=== PATIENT | female | born 1970 | race Caucasian/White ===

== ENCOUNTER 2018-03-11 10:24 | Emergency (ER) | payer MEDICARE ==
[~2018-03-11] VITALS: Ht 160 cm; Wt 72.6 kg
[2018-03-11] MEDS ORDERED: SODIUM CHLORIDE 0.9% 1000ML 1,000 ML IV STA (11:12)
[2018-03-11] MEDS ORDERED: MORPHINE SULFATE 2 MG/ML SYR IV STA ×3 (11:12→13:35)
[2018-03-11] MEDS ORDERED: PROMETHAZINE HCL (IM) 25 MG/ML VIAL IV STA (11:12)
[2018-03-11] MEDS ORDERED: DIATRIZOATE MEGL/DIATRIZOA SOD 30 ML BTL PO ONE (11:33)
[2018-03-11] MEDS ORDERED: SODIUM CHLORIDE 0.9% 50ML 50 ML ONE ×2 (11:44→14:48)
[2018-03-11 12:08] LABS: BASOPHILS % 0.4 % (0.0-1.0); EOSINOPHILS # (AUTO) 0.1 (0.0-0.4); EOSINOPHILS % 1.3 % (0.0-6.0); HEMATOCRIT 42.8 % (34.2-44.1); HEMOGLOBIN 14.6 g/dL (12.0-16.0); LYMPHOCYTES # (AUTO) 2.1 (1.0-3.2); LYMPHOCYTES % 26.6 % (18.0-39.1); MEAN CORPUSCULAR HEMOGLOBIN 31.9 pg (28-32); MEAN CORPUSCULAR HGB CONC 34.1 g/dL (31-35); MEAN CORPUSCULAR VOLUME 93.4 fL (81-99); MONOCYTES # (AUTO) 0.6 (0.2-0.8); MONOCYTES % 7.5 % (4.4-11.3); NEUTROPHILS # (AUTO) 4.9 (2.1-6.9); NEUTROPHILS % 64.1 % (38.7-80.0); PLATELET COUNT 244 x10e3/uL (140-360); RED BLOOD COUNT 4.58 x10e6/uL (3.6-5.1); RED CELL DISTRIBUTION WIDTH 12.8 % (11.7-14.4)
[2018-03-11] MEDS ORDERED: METHYLPREDNISOLONE SOD SUCC 125 MG/2ML VIAL IV ONE (12:15)
[2018-03-11 12:25] LABS: ALANINE AMINOTRANSFERASE 15 IU/L (0-55); ALBUMIN 3.5 g/dL (3.5-5.0); ALKALINE PHOSPHATASE 79 IU/L (40-150); ANION GAP 11.3 mmol/L (8-16); BLOOD UREA NITROGEN < 5 mg/dL (7-26); CALCIUM 9.4 mg/dL (8.4-10.2); CARBON DIOXIDE 25 mmol/L (22-29); CHLORIDE 106 mmol/L (98-107); CREATININE, SERUM 0.72 mg/dL (0.57-1.11); EST GLOMERULAR FILTRATION RATE > 60 ML/MIN (60-); GLUCOSE 92 mg/dL (74-118); LIPASE 15 U/L (8-78); POTASSIUM 3.3 mmol/L (3.5-5.1); SODIUM 139 mmol/L (136-145)
[2018-03-11 12:27] LABS: BUN/CREATININE RATIO 7 (6-25)
[2018-03-11 13:25] LABS: BILIRUBIN,URINE NEGATIVE (NEGATIVE); CLARITY,URINE CLEAR (CLEAR); COLOR,URINE YELLOW (YELLOW); KETONES,URINE NEGATIVE (NEGATIVE); LEUKOCYTE ESTERASE ,URINE NEGATIVE (NEGATIVE); NITRITE,URINE NEGATIVE (NEGATIVE); PROTEIN,URINE DIPSTICK NEGATIVE (NEGATIVE); URINE UROBILINOGEN 0.2 mg/dL (0.2 - 1)
[2018-03-11] MEDS ORDERED: POTASSIUM CHLORIDE 20 MEQ TAB CR PO STA (13:35)
[2018-03-11 13:39] LABS: EPITHELIAL CELLS,URINE RARE /LPF
[2018-03-11] MEDS ORDERED: ONDANSETRON HCL 4 MG ORAL DISINTEGRATING TAB PO ONE (13:45)
--- NOTE | 2018-03-11 14:03 | Diagnostic Imaging Report ---
PROCEDURE: CT ABDOMEN AND PELVIS WITH CONTRAST TECHNIQUE: The abdomen and pelvis were scanned utilizing a multidetector helical scanner from the diaphragm to the lesser trochanter after the IV administration of 100 cc of Isovue 370 and the oral administration of Gastrografin. Coronal and sagittal multiplanar reformations were obtained. COMPARISON: None. INDICATIONS: LEFT LOWER QUADRANT PAIN FINDINGS: LOWER THORAX: Normal. HEPATOBILIARY: No focal hepatic lesion or intrahepatic biliary ductal dilatation. The gallbladder is unremarkable. SPLEEN: No splenomegaly. Heterogeneity of splenic attenuation reflects arterial phase of scanning. PANCREAS: No focal masses or ductal dilatation. ADRENALS: No adrenal nodules. KIDNEYS/URETERS: No hydronephrosis, stones, or solid mass lesions. PELVIC ORGANS/BLADDER: The urinary bladder is unremarkable. The uterus is anteflexed and appears normal. No adnexal mass. A tampon lies within the vaginal vault. PERITONEUM / RETROPERITONEUM: No free air or fluid. LYMPH NODES: No pelvic sidewall, retroperitoneal, or mesenteric lymphadenopathy. VESSELS: The abdominal aorta, major branch vessels, and iliac arterial systems are well-visualized and patent. Portal vein, splenic vein, and the central superior mesenteric vein are patent. GI TRACT: The sigmoid colon and rectum are collapsed with mild wall thickening and mucosal enhancement. The large bowel otherwise shows no evidence of distention or wall thickening. The appendix is normal. The stomach is collapsed with prominence of the rugal folds. There is no small bowel dilatation to suggest obstruction. BONES AND SOFT TISSUES: No focal soft tissue abnormalities. No osseous destructive lesions. IMPRESSION: Mild distal proctocolitis without perforation or drainable fluid collection. Dictated by: Jerson Lozada M.D. on 03/11/2018 at 14:05 Electronically approved by: Jerson Lozada M.D. on 03/11/2018 at 14:05
[2018-03-11] MEDS ORDERED: METRONIDAZOLE 250MG/NS 50ML 50 ML IV STA (14:22)
[2018-03-11] MEDS ORDERED: IOPAMIDOL 370 MG/ML 200 ML INFUS..BTL INJ ONE (14:48)
[2018-03-11] MEDS ORDERED: CIPROFLOXACIN 400 MG/D5W 200ML 200 ML IV ONE (15:15)
[2018-03-11] MEDS ORDERED: METRONIDAZOLE 500 MG TAB PO STA (15:47)
[2018-03-11] MEDS ORDERED: HYDROCODONE/APAP 10MG-325MG TAB PO STA (16:28)
[2018-03-11] MEDS ORDERED: CIPROFLOXACIN 500 MG TAB PO SCH (17:00)
== END 2018-03-11 17:12 | disposition home or self-care (01) ==
LOC: ER 10:24
DX: R10.32 Left lower quadrant pain (principal); R19.7 Diarrhea, unspecified
CPT/HCPCS: 36415; 74177; 80053; 81001; 83690; 85025; 99284; J0744; J2270; J2550; J2930; J7030; Q9967

== ENCOUNTER 2018-07-21 09:45 | Emergency (ER) | payer MEDICARE ==
[~2018-07-21] VITALS: Ht 160 cm; Wt 72.6 kg
[2018-07-21] MEDS ORDERED: FAMOTIDINE 20 MG/2 ML VIAL IV STA (10:54)
[2018-07-21] MEDS ORDERED: ONDANSETRON HCL INJ 2 MG/ML VIAL IV STA (10:54)
[2018-07-21] MEDS ORDERED: SODIUM CHLORIDE 0.9% 1000ML 1,000 ML IV ONE (11:00)
[2018-07-21 11:53] LABS: BASOPHILS % 0.6 % (0.0-1.0); EOSINOPHILS # (AUTO) 0.2 (0.0-0.4); EOSINOPHILS % 2.3 % (0.0-6.0); HEMATOCRIT 46.2 % (34.2-44.1); HEMOGLOBIN 15.6 g/dL (12.0-16.0); LYMPHOCYTES # (AUTO) 2.4 (1.0-3.2); LYMPHOCYTES % 33.9 % (18.0-39.1); MEAN CORPUSCULAR HEMOGLOBIN 31.7 pg (28-32); MEAN CORPUSCULAR HGB CONC 33.8 g/dL (31-35); MEAN CORPUSCULAR VOLUME 93.9 fL (81-99); MONOCYTES # (AUTO) 0.5 (0.2-0.8); MONOCYTES % 7.5 % (4.4-11.3); NEUTROPHILS # (AUTO) 3.9 (2.1-6.9); NEUTROPHILS % 55.3 % (38.7-80.0); PLATELET COUNT 246 x10e3/uL (140-360); RED BLOOD COUNT 4.92 x10e6/uL (3.6-5.1); RED CELL DISTRIBUTION WIDTH 12.9 % (11.7-14.4)
[2018-07-21 11:58] LABS: BILIRUBIN,URINE NEGATIVE (NEGATIVE); CLARITY,URINE SL CLOUDY (CLEAR); COLOR,URINE YELLOW (YELLOW); KETONES,URINE NEGATIVE (NEGATIVE); LEUKOCYTE ESTERASE ,URINE NEGATIVE (NEGATIVE); NITRITE,URINE NEGATIVE (NEGATIVE); PROTEIN,URINE DIPSTICK NEGATIVE (NEGATIVE); URINE UROBILINOGEN 0.2 mg/dL (0.2 - 1)
[2018-07-21 12:00] LABS: EPITHELIAL CELLS,URINE RARE /LPF
[2018-07-21 12:05] LABS: ALANINE AMINOTRANSFERASE 21 IU/L (0-55); ALBUMIN 3.7 g/dL (3.5-5.0); ALBUMIN/GLOBULIN RATIO 0.8 (0.8-2.0); ALKALINE PHOSPHATASE 88 IU/L (40-150); ANION GAP 16.6 mmol/L (8-16); BLOOD UREA NITROGEN 7 mg/dL (7-26); BUN/CREATININE RATIO 8 (6-25); CALCIUM 9.8 mg/dL (8.4-10.2); CARBON DIOXIDE 25 mmol/L (22-29); CHLORIDE 101 mmol/L (98-107); CREATININE, SERUM 0.84 mg/dL (0.57-1.11); EST GLOMERULAR FILTRATION RATE > 60 ML/MIN (60-); GLUCOSE 62 mg/dL (74-118); LIPASE 33 U/L (8-78); POTASSIUM 4.6 mmol/L (3.5-5.1); SODIUM 138 mmol/L (136-145)
[2018-07-21 14:20] LABS: ERYTHROCYTE SEDIMENTATION RATE 7 mm/hr (0-20)
== END 2018-07-21 15:12 | disposition left against medical advice (07) ==
LOC: ER 09:45
DX: R10.13 Epigastric pain (principal); R10.32 Left lower quadrant pain; K52.9 Noninfective gastroenteritis and colitis, unspecified; F17.210 Nicotine dependence, cigarettes, uncomplicated
CPT/HCPCS: 36415; 80053; 81001; 83690; 85025; 85651; 99283; J7030

== ENCOUNTER 2019-02-12 15:22 | Emergency (ER) | payer MEDICARE ==
[~2019-02-12] VITALS: Ht 160 cm; Wt 72.6 kg
[2019-02-12] MEDS ORDERED: SODIUM CHLORIDE 0.9% 1000ML 2,000 ML IV ONE (16:15)
[2019-02-12] MEDS ORDERED: FAMOTIDINE 20 MG/2 ML VIAL IV NR (16:15)
[2019-02-12] MEDS ORDERED: ONDANSETRON HCL INJ 2MG/ML 2ML 2 MG/ML VIAL IV NR (16:30)
[2019-02-12 16:41] LABS: BASOPHILS # (AUTO) 0.1 (0.0-0.1); BASOPHILS % 0.9 % (0.0-1.0); EOSINOPHILS # (AUTO) 0.2 (0.0-0.4); EOSINOPHILS % 1.9 % (0.0-6.0); HEMATOCRIT 43.4 % (34.2-44.1); HEMOGLOBIN 14.8 g/dL (12.0-16.0); LYMPHOCYTES # (AUTO) 3.4 (1.0-3.2); LYMPHOCYTES % 36.8 % (18.0-39.1); MEAN CORPUSCULAR HEMOGLOBIN 31.8 pg (28-32); MEAN CORPUSCULAR HGB CONC 34.1 g/dL (31-35); MEAN CORPUSCULAR VOLUME 93.3 fL (81-99); MONOCYTES # (AUTO) 0.9 (0.2-0.8); MONOCYTES % 9.8 % (4.4-11.3); NEUTROPHILS # (AUTO) 4.7 (2.1-6.9); NEUTROPHILS % 50.4 % (38.7-80.0); PLATELET COUNT 192 x10e3/uL (140-360); RED BLOOD COUNT 4.65 x10e6/uL (3.6-5.1); RED CELL DISTRIBUTION WIDTH 12.4 % (11.7-14.4)
[2019-02-12 16:58] LABS: ALANINE AMINOTRANSFERASE 18 IU/L (0-55); ALBUMIN 3.5 g/dL (3.5-5.0); ALBUMIN/GLOBULIN RATIO 0.9 (0.8-2.0); ALKALINE PHOSPHATASE 79 IU/L (40-150); BLOOD UREA NITROGEN 8 mg/dL (7-26); BUN/CREATININE RATIO 10 (6-25); CALCIUM 9.4 mg/dL (8.4-10.2); CARBON DIOXIDE 25 mmol/L (22-29); CHLORIDE 103 mmol/L (98-107); CREATININE, SERUM 0.83 mg/dL (0.57-1.11); EST GLOMERULAR FILTRATION RATE > 60 ML/MIN (60-); GLUCOSE 93 mg/dL (74-118); SODIUM 138 mmol/L (136-145)
[2019-02-12] MEDS ORDERED: MORPHINE SULFATE INJ 4 MG/ML INJ 1ML IV NR (17:45)
[2019-02-12] MEDS ORDERED: POTASSIUM CHLORIDE 20 MEQ TAB CR PO NR (17:45)
[2019-02-12] MEDS ORDERED: DIATRIZOATE MEGL/DIATRIZOA SOD 30 ML BTL PO ONE (17:59)
[2019-02-12 18:30] LABS: PREGNANCY TEST, URINE NEGATIVE (NEGATIVE)
[2019-02-12 18:31] LABS: AMPHETAMINES SCREEN,URINE NEGATIVE (NEGATIVE); BENZODIAZEPINES SCREEN,URINE NEGATIVE (NEGATIVE); PHENCYCLIDINE SCREEN,URINE NEGATIVE (NEGATIVE)
[2019-02-12 18:38] LABS: CLARITY,URINE HAZY (CLEAR); COLOR,URINE YELLOW (YELLOW)
[2019-02-12 18:39] LABS: BILIRUBIN,URINE NEGATIVE (NEGATIVE); KETONES,URINE NEGATIVE (NEGATIVE); LEUKOCYTE ESTERASE ,URINE NEGATIVE (NEGATIVE); NITRITE,URINE NEGATIVE (NEGATIVE); PROTEIN,URINE DIPSTICK NEGATIVE (NEGATIVE); URINE UROBILINOGEN 0.2 mg/dL (0.2 - 1)
[2019-02-12 18:40] LABS: BACTERIA,URINE MODERATE /HPF; EPITHELIAL CELLS,URINE FEW /LPF; RBC,URINE 0-5 /HPF (0-5)
[2019-02-12] MEDS ORDERED: IOPAMIDOL 370 MG/ML 200 ML INFUS..BTL INJ ONE (18:59)
[2019-02-12] MEDS ORDERED: SODIUM CHLORIDE 0.9% 50ML 50 ML ONE (18:59)
--- NOTE | 2019-02-12 19:28 | Diagnostic Imaging Report ---
CT Abdomen And Pelvis with Intravenous Contrast INDICATION:abdominal pain, Crohn's disease, nausea, vomiting, diarrhea ^left lower quad pain ^[id number] ^[id number] TECHNIQUE: Thin collimation axial images obtained from the diaphragm to the level of the pubic symphysis following the uneventful administration of 100 cc of low osmolar, nonionic intravenous contrast. Dose reduction techniques used: Automated exposure control, adjustment of the mAs and/or kVp according to patient size, standardized low-dose protocol, and/or iterative reconstruction technique. RADIATION DOSE: Total DLP: 675.53 mGy*cm Estimated effective dose: (DLP x 0.015 x size factor) mSv CTDIvol has been reviewed. It is below the limits set by the Radiation Protocol Committee (RPC). COMPARISON: CT abdomen/pelvis 03/11/2018. ABDOMEN FINDINGS: Lung Bases: Minimal posterior atelectasis. Visualized portion of the mediastinum is normal. Liver: Normal attenuation. No evidence for mass. Gallbladder: Present and appears normal. No biliary ductal dilatation. Pancreas: Normal attenuation without mass or ductal dilatation. Spleen: Normal in size. No evidence of mass.. Adrenal Glands: No evidence for mass. Kidneys: Right: Normal enhancement. No soft tissue mass. No hydronephrosis. Left: Normal enhancement. No soft tissue mass. No hydronephrosis. Lymph Nodes: No enlarged abdominal or retroperitoneal lymph nodes. Aorta: Normal in diameter PELVIS FINDINGS: Bowel: Stomach: Collapsed but otherwise normal. Small Bowel: Central small bowel loop just the left of midline is distended with fluid to a diameter of 3.0 cm. Normal mural thickening and mucosal enhancement. Remainder of the small bowel is normal in diameter with normal wall thickness. No mucosal hyperemia. The terminal ileum appears normal. Large Bowel: Mild and subtle circumferential mural thickening of the descending colon containing fluid. The mid and distal descending colon and sigmoid colon are somewhat featureless with prominence of the fossa recta. No peritoneal inflammation or fluid collection. Findings are similar to previous exam. No large bowel dilatation. No perianal fistula or rectal wall thickening Appendix: Normal appendix. Fistula: None. Bladder: Normal. Uterus and adnexa are normal. Peritoneum/retroperitoneum: No free fluid or fluid collection. Bones: Unremarkable. Soft tissues: Unremarkable IMPRESSION: 1. Subtle mural thickening of the descending colon and sigmoid colon that suggests inflammatory bowel disease. There are no signs of active inflammation. An acute Crohn's flare, if present, is mild. 2. Distended central small bowel loop is suggestive of reactive ileus. Signed by: Dr. Michelle Huitron MD on 02/12/2019 7:25 PM
[2019-02-12] MEDS ORDERED: METHYLPREDNISOLONE SOD SUCC 125 MG/2ML VIAL IV NR (19:35)
== END 2019-02-12 20:03 | disposition home or self-care (01) ==
LOC: ER 15:22
DX: R11.2 Nausea with vomiting, unspecified (principal); R19.7 Diarrhea, unspecified; K50.00 Crohn's disease of small intestine without complications; F41.9 Anxiety disorder, unspecified
CPT/HCPCS: 36415; 74177; 80053; 80307; 81001; 81025; 85025; 99284; J2270; J2405; J2930; J7030; Q9967

== ENCOUNTER 2019-05-21 23:32 | Emergency (ER) | payer MEDICARE ==
[~2019-05-21] VITALS: Ht 160 cm; Wt 72.6 kg
--- OUTSIDE RECORDS SUMMARY | 2019-05-21 23:34 | XMS REPORT | Summary of Care ---
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 Active ondansetron 4 mg One every 6 50 tablet 5 disintegrating hours prn 8 tabletIndications: Non-intractable vomiting with nausea, unspecified vomiting type Active loratadine (CLARITIN) 10 Take 1 tablet 30 tablet 5 mg tablet by mouth 8 daily. Active famotidine (PEPCID) 20 mg Take 1 tablet 60 tablet 5 tablet by mouth 2 8 (two) times daily. Active proMETHazine 25 mg tablet Take 1/2 to 1 50 tablet 1 full tablet 8 every 6 hours as needed for nausea. Active SUMAtriptan 50 mg Take 1 tablet 20 tablet 5 tabletIndications: Other by mouth once 8 migraine with status daily as migrainosus, not needed for intractable Migraine. Can take a second dose if pain not relieved in 2 hours. Active SERTraline 100 mg Take 1.5 135 tablet 3 tabletIndications: tablets by 8 Recurrent major mouth daily. depressive disorder, remission status unspecified Active gabapentin 300 mg Take 2 before 270 capsule 5 capsuleIndications: bedtime and 9 Sciatica of right side occasionally 1 in the daytime as needed Active hydrOXYzine 25 mg TAKE 1 TABLET 60 tablet 2 tabletIndications: BY MOUTH 9 Depression with anxiety TWICE DAILY NEEDED FOR ANXIETY Active dicyclomine 10 mg capsule Take 2 30 capsule 0 capsules by 9 mouth 2 (two) times daily. Active tiZANidine 4 mg Take 1 tablet 90 tablet 2 tabletIndications: by mouth 3 9 Chronic bilateral low (three) times back pain with daily as right-sided sciatica needed (pain). Active acetaminophen-codeine Take 1 tablet 120 tablet 2 300-60 mg by mouth 9 tabletIndications: every 6 (six) Crohn's disease with hours as other complication, needed unspecified (severe gastrointestinal tract pain). location Active zolpidem (AMBIEN) 5 mg Take 1 tablet 30 tablet 2 tabletIndications: by mouth at 9 Insomnia, unspecified bedtime as type needed for Insomnia. 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 12/23/2018 Dysmenorrhea 11/26/2016 Overview: X 7 months Generalized anxiety disorder 11/26/2016 Major depressive disorder 11/26/2016 Inflammatory bowel disease 05/27/2015 Crohn disease 05/26/2015 documented as of this encounter (statuses as of 05/20/2019) Immunizations Name Administration Dates Next Due PPD (TB) 02/05/2016 Twinrix (hep a/hep b) 05/30/2015 documented as of this encounter Social History Date Tobacco Use Types Packs/Day Years Used Current Every Day Smoker Cigarettes 0.25 Smokeless Tobacco: Never Used Drinks/Week oz/Week Comments Alcohol Use 0 Standard drinks or equivalent 0.0 No Sex Assigned at Date Recorded Not on file Industry Job Start Date Occupation Not on file Not on file Not on file Travel End Travel History Travel Start No recent travel history available. documented as of this encounter Last Filed Vital Signs Not on filedocumented in this encounter Plan of Treatment Care Team Description Date Type Specialty Jovon Casiano DO [id number] [place], [place] [id number] 05/31/2019 Office Visit Gastroenterology 3, [facility] 06/09/2019 Nurse Visit Infusion Therapy Hadley Rivera MD [id number] [place], [place] [phone] 06/13/2019 Office Visit Pain Medicine Apoorva Frey MD [address] [place], [place] [phone] 06/20/2019 Office Visit Internal Medicine Health Maintenance Due Date Last Done Comments PNEUMOCOCCAL 0-64 YEARS 1978 COMBINED SERIES (1 of 1 - PPSV23) DTaP,Tdap,and Td Vaccines 1991 (1 - Tdap) PAP SMEAR 03/18/2008 03/18/2005 MAMMOGRAM 2012 INFLUENZA VACCINE 06/26/2019 documented as of this encounter Results Not on filedocumented in this encounter Insurance Type Payer Benefit Subscriber ID Effective Phone Address Plan / Dates Group Medicare MEDICARE MEDICARE xxxxxxxxxxx 2015-P [phone] [address] [id number] [place] [id number] Medicaid [facility] MEDICAID xxxxxxxxx 2018- [phone] [address] [place] Present [id number] [facility] [place] [place] [address] documented as of this encounter
--- OUTSIDE RECORDS SUMMARY | 2019-05-21 23:34 | XMS REPORT | Summary of Care ---
Author Author [facility] - Health Organization [facility] - Health Address Unknown Phone Unavailable Care Team Providers Care Bankruptcy Paralegal Name Role Phone Apoorva Frey MD PCP Reason for Visit * Reason Comments Notification Encounter Details Care Team Description Date Type Department Hadley Rivera MD [id number] [place], [place] [phone] Notification 05/21/2019 Telephone [facility] [address] [place] [address] Allergies No Known Allergiesdocumented as of this encounter (statuses as of 05/21/2019) Medications End Date Status Medication Sig Dispensed [...] Administered Medication Active medroxyPROGESTERone 150 mg IM [id number] 11/26/19 (DEPO-PROVERA) syringe 17 150 mgIndications: Dysmenorrhea documented as of this encounter (statuses as of 05/21/2019) Active Problems Problem Noted Date Obesity (BMI 30-39.9) 05/20/2019 Degenerative disc disease at L5-S1 level 05/02/2019 Overview: Added automatically from request for surgery [id number] Chronic bilateral low back pain with right-sided sciatica 03/14/2019 Acute low back pain 02/03/2019 Other longterm (current) drug therapy 12/23/2018 Dysmenorrhea 11/26/2016 Overview: X 7 months Generalized anxiety disorder 11/26/2016 Major depressive disorder 11/26/2016 Inflammatory bowel disease 05/27/2015 Crohn disease 05/26/2015 documented as of this encounter (statuses as of 05/21/2019) Immunizations Name Administration Dates Next Due PPD [...] Specialty Jovon Casiano DO [address] [place], [place] [phone] 05/31/2019 Office Visit Gastroenterology 3, [facility] 06/09/2019 Nurse Visit Infusion Therapy Hadley Rivera MD [address] [id number] [place], [place] [phone] 06/13/2019 Office Visit Pain Medicine Apoorva Frey MD [address] [place], [place] [phone] 06/20/2019 Office Visit Internal Medicine Health Maintenance [...] Dates Group Medicare MEDICARE MEDICARE xxxxxxxxxxx 2015-P [phone] [address] [place] [id number] [place] [id number] Medicaid [facility] MEDICAID xxxxxxxxx 2018- [phone] [place] Present [id number] [facility] [place] [place] [address] documented as of this encounter
--- OUTSIDE RECORDS SUMMARY | 2019-05-21 23:34 | XMS REPORT | Summary of Care ---
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 Role Phone Apoorva Frey MD PCP Reason for Referral * (Routine) Referred By Contact Referred To Contact Status Reason Specialty Diagnoses / Procedures Hadley Rivera MD [id number] [place] [id number] New Request Diagnostic Diagnoses Radiology Degenerative disc disease at L5-S1 level P rocedures FL TIME OR (NON-REPORTABLE) * (Routine) Referred By Contact Referred To Contact Status Reason Specialty Diagnoses / Procedures Hadley Rivera MD [id number] [place] [id number] New Request Diagnostic Diagnoses Radiology Degenerative disc disease at L5-S1 level P rocedures FL TIME OR (NON-REPORTABLE) Reason for Visit * Auth/Cert Referred By Contact Referred To Contact Status Reason Specialty Diagnoses / Procedures Vl Preop [address] [place] [address] Surgery Diagnoses Degenerative disc disease at L5-S1 level [M51.36] P rocedures [facility] 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 05/16/2019 Discontinued llzffihz-sqvaxitmu-yvowey Place 3 Drops 10 mL 0 ortisone 3.5-10,000-1 in both ears 8 mg/mL-unit/mL-% otic 4 (four) suspIndications: Acute times daily. noninfective otitis Use for 1 externa of both ears, week. unspecified type 05/16/2019 Discontinued lidocaine 5 % (700 Apply 1 Patch 30 Patch 1 mg/patch) to area(s) 9 patchIndications: Acute daily. 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 12/23/2018 Dysmenorrhea 11/26/2016 Overview: X 7 months Generalized anxiety disorder 11/26/2016 Major depressive disorder 11/26/2016 Inflammatory bowel disease 05/27/2015 Crohn disease 05/26/2015 documented as of this encounter (statuses as of 05/19/2019) Immunizations Name Administration Dates Next Due PPD (TB) 02/05/2016 Twinrix (hep a/hep b) 05/30/2015 documented as of this encounter Social History Date Tobacco Use Types Packs/Day Years Used Current Every Day Smoker Cigarettes 0.25 Smokeless Tobacco: Never Used Tobacco Cessation: Ready to Quit: No; Counseling Given: Yes Drinks/Week oz/Week Comments Alcohol Use 0 Standard drinks or equivalent 0.0 No Sex Assigned at Date Recorded Not on file Industry Job Start Date Occupation Not on file Not on file Not on file Travel End Travel History Travel Start No recent travel history available. documented as of this encounter Last Filed Vital Signs Reading Time Taken Comments Vital Sign 111/72 05/19/2019 1:25 PM CDT Blood Pressure 57 05/19/2019 1:25 PM CDT Pulse 36.3 C (97.4 F) 05/19/2019 1:05 PM CDT Temperature 17 05/19/2019 1:25 PM CDT Respiratory Rate 98% 05/19/2019 1:25 PM CDT Oxygen Saturation - - Inhaled Oxygen Concentration 83.9 kg (185 lb) 05/19/2019 12:00 PM CDT Weight 162.6 cm (5' 4") 05/19/2019 12:00 PM CDT Height 31.76 05/19/2019 12:00 PM CDT Body Mass Index documented in this encounter Discharge Instructions * Instructions* Tisha Funk RN - 05/19/2019 Pain Discharge Instructions 1. Activity as tolerated. Try to take it easy the day of the procedure with no heavy lifting for the next few days. 2. Advance diet as tolerated. 3. Resume home medications as directed. 4. Apply ice pack to procedure site as needed for pain/discomfort. Place on fo r 20 minutes then remove for 20 minutes. Can do this 3-4 times a day. 5. May remove dressing in 24 hours. Then you may shower after dressing is remov ed. 6. No driving for the next 24 hours. 7. Call surgeon if uncontrolled pain or bleeding, or new onset of numbness or t ingling, or a headache that changes with position changes or any other concerns or questions. 8. If you are a diabetic, please monitor your blood sugars more closely for one week following your injection. Steroid injections can cause an increase in you r blood sugar level. Please contact your physician if you need additional benjamin tance in managing a high blood sugar level following your procedure. Contact Information [facility] ~ Daytime: [phone] After Hours: [facility] Access Line [phone] and ask to speak to the Nurse On-[facility] l General Surgical Discharge Instructions: ? The medication that was used will be acting in your system for the next 24 johanne rs, so you might feel a little drowsy, with impaired judgment and/ or motor func tion. This feeling should wear off. Because the medication is still in your sy stem for the next 24 hours you SHOULD NOT:o Drive a car, operate machinery or po wer tools.o Drink any alcoholic beverages.o Make any important decisions or sign any legal documents.? You should rest the remainder of the day and not engage i n any physical activity. YOU ARE RESPONSIBLE FOR HAVING SOMEONE AT HOME WITH YO U DURING THE AFTERNOON AND NIGHT IMMEDIATELY FOLLOWING YOUR SURGERY. Patients s hould cough and deep breathe every 2-4 hours while awake to avoid respiratory co mplications.? Because the medications used could produce some residual nausea an d vomiting after you go home, you should eat lightly today, starting with clear liquids (broth, soft drinks, apple juice, jello) and toast or crackers, progress ing to your normal diet as tolerated. If you get sick, wait a couple of hours a nd then begin to eat. After 24 hours the nausea should be gone. If your nausea persists, call your physician.? You may experience some pain and your physician will advise you on what to take for discomfort. This should be taken as direct ed. If the pain is not relieved, contact your physician. You may also have a s ore throat from the airway/ breathing tube that was in place. You may use lozen ges, throat spray (Chloraseptic), or warm salt water gargles for symptomatic rel ief.? If you are unable to urinate within five hours after your procedure, call your physician.? The type of surgery performed will determine how much bleeding (if any) to expect. Normally, some spotting might occur. If your dressing pad become saturated, notify your physician. Elevate surgical site, if applicable, to reduce swelling and pain.? Preventing a surgical site infection:o Bella iqbal. It is best to quit at least 30 days before surgery, but quitting after surg guanako is also helpful. o If you are a diabetic, keep your blood sugar well controlled. WASH YOUR HANDS . o Keep your wound clean and remember to wash your hands before and after contact with the area. o Call your doctor if you have signs of infection: ? increased tenderness at the surgical site ? red streaks or increased redness of the area ? bad-smelling discharge from the incision ? fever of 101 or higher TOBACCO AVOIDANCE Exposure to tobacco either from smoking or from second hand (environmental)smoke or smokeless tobacco (snuff) is damaging to your health. This information is t o encourage everyone to avoid tobacco exposure. It is recommended that you: If you smoke or use smokeless tobacco, we encourage you to quit. If you have already quit smoking, continue your good work! If you do not smoke or use smokeless tobacco, do not start. Avoid secondhand smoke. Additional Resources: You may want to contact these organizations for further information on smokin g and how to quit- [place] [employer] - http://www.lungusa.org/stop-smoking/ [place] [employer] - http://www.cancer.org/Healthy/StayAwayfromTobacco/i ndex [place] [employer] - http://www.heart.org/HEARTORG/GettingHealthy/Dwight tSmoking/Quit-Smoking_[facility]_001085_SubHomePage.jsp documented in this encounter Plan of Treatment Care Team Description Date Type Specialty Jovon Casiano DO [address] [facility] [id number] [place], [place] [id number] 05/31/2019 Office Visit Gastroenterology 3, [facility] 06/09/2019 Nurse Visit Infusion Therapy Hadley Rivera MD [address] [facility] [id number] [place], [place] [id number] 06/13/2019 Office Visit Pain Medicine Apoorva Frey MD [address] [place], [place] [id number] 06/20/2019 Office Visit Internal Medicine Health Maintenance Due Date Last Done Comments PNEUMOCOCCAL 0-64 YEARS 1978 COMBINED SERIES (1 of 1 - PPSV23) DTaP,Tdap,and Td Vaccines 1991 (1 - Tdap) PAP SMEAR 03/18/2008 03/18/2005 MAMMOGRAM 2012 INFLUENZA VACCINE 06/26/2019 documented as of this encounter Procedures Comments Procedure Name Priority Date/Time Associated Diagnosis FL TIME OR Routine 05/19/2019 Degenerative disc disease (NON-REPORTABLE) 1:04 PM CDT at L5-S1 level CONSENT/REFUSAL FOR Routine 05/19/2019 DIAGNOSIS AND TREATMENT 9:46 AM CDT ASSIGNMENT OF BENEFITS Routine 05/19/2019 9:46 AM CDT documented in this encounter Results * FL TIME OR (NON-REPORTABLE) (05/19/2019 1:04 PM CDT) Specimen Narrative Performed At These images do not require a Radiology diagnostic report. PACS Performing Organization Address City/State/Zipcode Phone Number PACS documented in this encounter Visit Diagnoses Diagnosis Degenerative disc disease at L5-S1 level documented in this encounter Administered Medications Action Date Dose Rate Site Medication Order MAR Action 05/19/2019 12:50 PM CDT 2 mL bupivacaine (preserv free) (SENSORCAINE Given MPF) 0.25 % (2.5 mg/mL) injection PRN, Starting Dolores 05/19/19 at 1250, Until Discontinued, Routine, Intra-op 05/19/2019 12:50 PM CDT 10 mg dexamethasone (DECADRON) injection Given PRN, Starting Dolores 05/19/19 at 1250, Until Discontinued, Routine, Intra-op 05/19/2019 12:20 PM CDT 25 mcg FENTanyl PF (SUBLIMAZE (PF)) injection Given 25 mcg 25 mcg, Slow IV Push, Q5MIN PRN, 2 doses, Starting Dolores 05/19/19 at 1215, Until Discontinued, Routine, Pain (scale 4-6), DSU Pre-op 05/19/2019 1:02 PM CDT 1.5 mL iohexol (OMNIPAQUE 300-50 mL)) injection Given PRN, Starting Dolores 05/19/19 at 1302, Until Discontinued, Routine, Intra-op 05/19/2019 1:02 PM CDT 10 mL lidocaine 1% (PF) (XYLOCAINE) injection Given PRN, Starting Dolores 05/19/19 at 1250, Until Discontinued, Routine, Intra-op 1 mL Given 05/19/2019 12:50 PM CDT 05/19/2019 12:50 PM CDT 10 mL NaCl 0.9% (NS) injection Given PRN, Starting Dolores 05/19/19 at 1250, Until Discontinued, Routine, Intra-op documented in this encounter Insurance Type Payer Benefit Subscriber ID Effective Phone Address Plan / Dates Group Medicare MEDICARE MEDICARE xxxxxxxxxxx 2015-P [id number] [place] [id number] Medicaid [place] [facility] MEDICAID xxxxxxxxx 2018- [phone] P O [facility] Present [id number] [place] [address] Guarantor Name Account Relation to Date of Phone Billing Address Type Patient AdiEllis Personal/F Self [phone] [facility] (Home) [place] [address] documented as of this encounter
[2019-05-21] MEDS ORDERED: PANTOPRAZOLE 40 MG 10ML VIAL IV STA (23:50)
[2019-05-21] MEDS ORDERED: ONDANSETRON HCL INJ 2MG/ML 2ML 2 MG/ML VIAL IV STA (23:50)
[2019-05-22] MEDS ORDERED: DICYCLOMINE HCL 20 MG/2 ML VIAL IM ONE
[2019-05-22] MEDS ORDERED: SODIUM CHLORIDE 0.9% 1000ML 1,000 ML IV ONE
--- NOTE | 2019-05-22 00:24 | NUR ---
PT REFUSES BENTYL INJECTION, STATES SHE DOESN'T WANT ANOTHER NEEDLE IN HER BODY. PT DIFFICULT STICK, 20G IN RACF X 1 STICK PER Ratna RUIZ RN AFTER 3 UNSUCCESSFUL STICKS PER THIS RN.
[2019-05-22 00:26] LABS: BASOPHILS # (AUTO) 0.1 (0.0-0.1); BASOPHILS % 0.8 % (0.0-1.0); EOSINOPHILS # (AUTO) 0.3 (0.0-0.4); EOSINOPHILS % 2.4 % (0.0-6.0); HEMATOCRIT 44.8 % (34.2-44.1); HEMOGLOBIN 15.1 g/dL (12.0-16.0); LYMPHOCYTES # (AUTO) 4.4 (1.0-3.2); LYMPHOCYTES % 43.1 % (18.0-39.1); MEAN CORPUSCULAR HEMOGLOBIN 32.3 pg (28-32); MEAN CORPUSCULAR HGB CONC 33.7 g/dL (31-35); MEAN CORPUSCULAR VOLUME 95.7 fL (81-99); MONOCYTES % 9.7 % (4.4-11.3); NEUTROPHILS # (AUTO) 4.5 (2.1-6.9); NEUTROPHILS % 43.7 % (38.7-80.0); PLATELET COUNT 129 x10e3/uL (140-360); RED BLOOD COUNT 4.68 x10e6/uL (3.6-5.1); RED CELL DISTRIBUTION WIDTH 13.7 % (11.7-14.4)
[2019-05-22 00:45] LABS: AMYLASE 49 U/L (25-125); LIPASE 36 U/L (8-78)
[2019-05-22 01:04] LABS: ALBUMIN 3.8 g/dL (3.5-5.0); ALBUMIN/GLOBULIN RATIO 1.2 (0.8-2.0); ANION GAP 17.1 mmol/L (8-16); CALCIUM 9.5 mg/dL (8.4-10.2); CREATININE, SERUM 1.07 mg/dL (0.57-1.11); POTASSIUM 3.1 mmol/L (3.5-5.1)
[2019-05-22] MEDS ORDERED: POTASSIUM CHLORIDE 20MEQ/15ML UDC PO ONE (01:30)
[2019-05-22] MEDS ORDERED: DICYCLOMINE HCL 20 MG TAB PO ONE (01:30)
--- NOTE | 2019-05-22 01:35 | NUR ---
pt vomited on floor after po meds. aware.
[2019-05-22] MEDS ORDERED: KCL 20MEQ/.9 SOD CHL 1,000 ML IV ONE (01:45)
[2019-05-22] MEDS ORDERED: METOCLOPRAMIDE HCL 10 MG/2ML VIAL ONE (01:46)
[2019-05-22] MEDS ORDERED: METOCLOPRAMIDE HCL 10 MG/2ML VIAL IV ONE (02:00)
[2019-05-22 02:13] LABS: BILIRUBIN,URINE SMALL (NEGATIVE); CLARITY,URINE CLEAR (CLEAR); KETONES,URINE NEGATIVE (NEGATIVE); LEUKOCYTE ESTERASE ,URINE NEGATIVE (NEGATIVE); NITRITE,URINE NEGATIVE (NEGATIVE); PROTEIN,URINE DIPSTICK NEGATIVE (NEGATIVE); URINE UROBILINOGEN 0.2 mg/dL (0.2 - 1)
[2019-05-22 02:16] LABS: COLOR,URINE AMBER (YELLOW)
[2019-05-22 02:18] LABS: AMPHETAMINES SCREEN,URINE NEGATIVE (NEGATIVE); PHENCYCLIDINE SCREEN,URINE NEGATIVE (NEGATIVE)
[2019-05-22 02:19] LABS: BENZODIAZEPINES SCREEN,URINE POSITIVE (NEGATIVE)
[2019-05-22 02:26] LABS: BACTERIA,URINE MANY /HPF; EPITHELIAL CELLS,URINE MANY /LPF
[2019-05-22] MEDS ORDERED: SUMATRIPTAN SUC50 MG PO (02:29)
[2019-05-22] MEDS ORDERED: ONDANSETRON HCL4 MG PO (02:29)
[2019-05-22] MEDS ORDERED: ZOLPIDEM TARTRAT5 MG PO (02:29)
[2019-05-22] MEDS ORDERED: ULTRAM 50MG50 MG PO (02:29)
[2019-05-22] MEDS ORDERED: TIZANIDINE HCL4 MG PO (02:29)
[2019-05-22] MEDS ORDERED: GABAPENTIN300 MG PO ×2 (02:29)
[2019-05-22] MEDS ORDERED: ACETAMINOPHEN-1 EAC4 PO (02:29)
[2019-05-22] MEDS ORDERED: FAMOTIDINE20 MG PO (02:35)
[2019-05-22] MEDS ORDERED: DICYCLOMINE HCL10 MG PO (02:35)
[2019-05-22] MEDS ORDERED: ASACOL HD800 MG PO (02:35)
[2019-05-22] MEDS ORDERED: LORATADINE10 MG PO (02:35)
== END 2019-05-22 04:00 | disposition home or self-care (01) ==
LOC: ER 23:32
DX: R11.2 Nausea with vomiting, unspecified (principal); M54.41 Lumbago with sciatica, right side; G89.29 Other chronic pain
CPT/HCPCS: 36415; 80053; 80307; 81001; 82150; 83690; 85025; 99284; C9113; J0500; J2405; J2765; J7030

== ENCOUNTER 2023-01-15 10:04 | Inpatient (IN) | payer MEDICARE ==
[~2023-01-15] VITALS: Ht 157.5 cm; Wt 72.6 kg
[~2023-01-15 10:04] MED LIST: ACETAMINOPHEN-1 EAC4 PO; ASACOL HD800 MG PO; DICYCLOMINE HCL10 MG PO; FAMOTIDINE20 MG PO; GABAPENTIN300 MG PO; LORATADINE10 MG PO; ONDANSETRON HCL4 MG PO; SUMATRIPTAN SUC50 MG PO; TIZANIDINE HCL4 MG PO; ULTRAM 50MG50 MG PO; ZOLPIDEM TARTRAT5 MG PO
[2023-01-15] MEDS ORDERED: SODIUM CHLORIDE 0.9% 1000ML 1,000 ML IV STA ×3 (10:30→15:16)
[2023-01-15 10:57] LABS: BASOPHILS % 0.4 % (0.0-1.0); EOSINOPHILS % 0.3 % (0.0-6.0); HEMATOCRIT 43.2 % (34.2-44.1); HEMOGLOBIN 14.5 g/dL (12.0-16.0); LYMPHOCYTES # (AUTO) 2.2 (1.0-3.2); LYMPHOCYTES % 32.6 % (18.0-39.1); MEAN CORPUSCULAR HEMOGLOBIN 31.7 pg (28-32); MEAN CORPUSCULAR HGB CONC 33.6 g/dL (31-35); MEAN CORPUSCULAR VOLUME 94.3 fL (81-99); MONOCYTES # (AUTO) 0.5 (0.2-0.8); MONOCYTES % 7.2 % (4.4-11.3); NEUTROPHILS # (AUTO) 4.1 (2.1-6.9); NEUTROPHILS % 59.4 % (38.7-80.0); PLATELET COUNT 107 x10e3/uL (140-360); RED BLOOD COUNT 4.58 x10e6/uL (3.6-5.1); RED CELL DISTRIBUTION WIDTH 12.3 % (11.7-14.4)
[2023-01-15 11:14] LABS: INR 0.89; PROTHROMBIN TIME 12.5 seconds (11.9-14.5)
[2023-01-15 11:15] LABS: PARTIAL THROMBOPLASTIN TIME 33.8 seconds (23.8-35.5)
[2023-01-15 11:30] LABS: ALANINE AMINOTRANSFERASE 25 IU/L (0-55); ALBUMIN/GLOBULIN RATIO 0.9 (0.8-2.0); ALKALINE PHOSPHATASE 62 IU/L (40-150); ANION GAP 13.8 mmol/L (8-16); BLOOD UREA NITROGEN 19 mg/dL (7-26); BUN/CREATININE RATIO 12 (6-25); CALCIUM 8.9 mg/dL (8.4-10.2); CARBON DIOXIDE 25 mmol/L (22-29); CHLORIDE 100 mmol/L (98-107); CREATINE KINASE 73 IU/L (29-168); CREATININE, SERUM 1.62 mg/dL (0.57-1.11); GLUCOSE 114 mg/dL (74-118); MAGNESIUM 1.9 MG/DL (1.3-2.1); SODIUM 136 mmol/L (136-145)
[2023-01-15 11:34] LABS: POTASSIUM 2.8 mmol/L (3.5-5.1)
[2023-01-15] MEDS ORDERED: POTASSIUM CHLORIDE 20 MEQ TAB CR PO STA (11:58)
[2023-01-15 13:05] LABS: CLARITY,URINE CLEAR (CLEAR); COLOR,URINE YELLOW (YELLOW); KETONES,URINE NEGATIVE (NEGATIVE); LEUKOCYTE ESTERASE ,URINE NEGATIVE (NEGATIVE); NITRITE,URINE NEGATIVE (NEGATIVE); PROTEIN,URINE DIPSTICK 1+ (NEGATIVE); URINE UROBILINOGEN 0.2 mg/dL (0.2 - 1)
[2023-01-15 13:28] LABS: BACTERIA,URINE FEW /HPF; EPITHELIAL CELLS,URINE FEW /LPF; TRANSITIONAL EPI CELLS,URINE RARE; WBC,URINE (MAN) 0-5 /HPF (0-5)
[2023-01-15] MEDS ORDERED: ACETAMINOPHEN 1000 MG/100 ML IV STA (13:59)
[2023-01-15 15:25] LABS: AMPHETAMINES SCREEN,URINE NEGATIVE (NEGATIVE); BENZODIAZEPINES SCREEN,URINE NEGATIVE (NEGATIVE); PHENCYCLIDINE SCREEN,URINE NEGATIVE (NEGATIVE)
[2023-01-15] MEDS ORDERED: MIDODRINE HCL 5 MG TABLET PO ONE (15:30)
[2023-01-15] MEDS ORDERED: DEXAMETHASONE SOD PHOS 10 MG/1 ML VIAL IV ONE (15:45)
[2023-01-15] MEDS ORDERED: TRAMADOL HCL 50 MG TAB PO PRN (16:00)
[2023-01-15] MEDS ORDERED: TIZANIDINE HCL 4 MG TAB PO PRN (16:00)
[2023-01-15] MEDS ORDERED: GABAPENTIN 300 MG CAP PO PRN (16:00)
[2023-01-15] MEDS ORDERED: POTASSIUM CHLORIDE 20MEQ/100ML 200 ML IV ONE (17:00)
[2023-01-15] MEDS: FAMOTIDINE 20 MG TAB PO SCH (17:10)
[2023-01-15] MEDS: LACTATED RINGER'S 1,000 ML INJ SCH (18:20)
[2023-01-15] MEDS ORDERED: ACETAMINOPHEN 325 MG TAB PO PRN (19:30)
[2023-01-15] MEDS: GABAPENTIN 300 MG CAP PO SCH (21:22)
[2023-01-15] MEDS: ENOXAPARIN SOD INJ 40 MG/0.4 ML SYR SC SCH (21:27)
[2023-01-15] MEDS: ONDANSETRON HCL INJ 2MG/ML 2ML 2 MG/ML VIAL IV PRN (21:27)
[2023-01-15] MEDS: Morphine 4mg INJECTION 4 MG/ML INJ IV PRN (21:28)
[2023-01-15 21:56] VITALS: BP 129/84
[2023-01-16] VITALS (7 sets, daily range): BP systolic 106–134; BP diastolic 59–82
[2023-01-16] MEDS: Morphine 4mg INJECTION 4 MG/ML INJ IV PRN ×6 (02:06→18:00)
[2023-01-16] MEDS: ONDANSETRON HCL INJ 2MG/ML 2ML 2 MG/ML VIAL IV PRN ×4 (02:07→21:32)
[2023-01-16 04:57] LABS: HEMATOCRIT 39.7 % (34.2-44.1); LYMPHOCYTES # (AUTO) 1.3 (1.0-3.2); MEAN CORPUSCULAR HEMOGLOBIN 31.4 pg (28-32); MEAN CORPUSCULAR HGB CONC 32.7 g/dL (31-35); MEAN CORPUSCULAR VOLUME 95.9 fL (81-99); MONOCYTES # (AUTO) 0.3 (0.2-0.8); MONOCYTES % 8.7 % (4.4-11.3); NEUTROPHILS # (AUTO) 2.1 (2.1-6.9); NEUTROPHILS % 55.8 % (38.7-80.0); PLATELET COUNT 96 x10e3/uL (140-360); RED BLOOD COUNT 4.14 x10e6/uL (3.6-5.1); RED CELL DISTRIBUTION WIDTH 12.4 % (11.7-14.4)
[2023-01-16 05:15] LABS: ALBUMIN 2.8 g/dL (3.5-5.0); ALBUMIN/GLOBULIN RATIO 0.9 (0.8-2.0); ANION GAP 13.9 mmol/L (8-16); CALCIUM 8.4 mg/dL (8.4-10.2); CREATININE, SERUM 0.73 mg/dL (0.57-1.11); POTASSIUM 3.9 mmol/L (3.5-5.1)
[2023-01-16 05:37] LABS: CREATINE KINASE 90 IU/L (29-168); THYROID STIMULATING HORMONE 0.194 uIU/mL (0.350-4.940)
[2023-01-16 05:57] LABS: MAGNESIUM 1.9 MG/DL (1.3-2.1); PHOSPHORUS 2.4 MG/DL (2.3-4.7)
[2023-01-16] MEDS: DICYCLOMINE HCL 10 MG CAP PO SCH ×2 (08:34→18:04)
[2023-01-16] MEDS: FAMOTIDINE 20 MG TAB PO SCH ×2 (08:34→18:04)
[2023-01-16] MEDS: DEXAMETHASONE SOD PHOS 10 MG/1 ML VIAL IV SCH (08:34)
[2023-01-16] MEDS: LACTATED RINGER'S 1,000 ML INJ SCH (08:35)
[2023-01-16 08:39] LABS: FREE T4 (FREE THYROXINE) 0.77 ng/dL (0.8-1.8); FREE THYROXINE INDEX 1.5835 (1.4-3.8)
[2023-01-16] MEDS: DOCUSATE SODIUM 100 MG CAP PO SCH (08:44)
[2023-01-16] MEDS: SENNOSIDES 8.6 MG TAB PO SCH (08:45)
[2023-01-16] MEDS ORDERED: REMDESIVIR 100MG 200 MG in SODIUM CHLORIDE 0.9% 100 ML IV ONE (13:30)
[2023-01-16] MEDS: ENOXAPARIN SOD INJ 40 MG/0.4 ML SYR SC SCH (18:12)
[2023-01-16] MEDS: GABAPENTIN 300 MG CAP PO SCH (21:00)
[2023-01-16] MEDS: Morphine 2mg Syringe 2 MG/ML SYR IV PRN (21:31)
[2023-01-17] VITALS: BP 134/84
[2023-01-17] MEDS: Morphine 2mg Syringe 2 MG/ML SYR IV PRN (03:37)
[2023-01-17] MEDS: ONDANSETRON HCL INJ 2MG/ML 2ML 2 MG/ML VIAL IV PRN (03:37)
[2023-01-17 04:00] VITALS: BP 137/69
[2023-01-17 05:05] VITALS: BP 137/69
[2023-01-17 06:25] LABS: HEMATOCRIT 38.6 % (34.2-44.1); HEMOGLOBIN 12.4 g/dL (12.0-16.0); LYMPHOCYTES # (AUTO) 2.4 (1.0-3.2); LYMPHOCYTES % 53.4 % (18.0-39.1); MEAN CORPUSCULAR HEMOGLOBIN 31.4 pg (28-32); MEAN CORPUSCULAR HGB CONC 32.1 g/dL (31-35); MEAN CORPUSCULAR VOLUME 97.7 fL (81-99); MONOCYTES # (AUTO) 0.4 (0.2-0.8); MONOCYTES % 9.5 % (4.4-11.3); NEUTROPHILS # (AUTO) 1.7 (2.1-6.9); NEUTROPHILS % 36.9 % (38.7-80.0); PLATELET COUNT 94 x10e3/uL (140-360); RED BLOOD COUNT 3.95 x10e6/uL (3.6-5.1); RED CELL DISTRIBUTION WIDTH 12.4 % (11.7-14.4)
[2023-01-17 06:46] LABS: ALBUMIN 2.8 g/dL (3.5-5.0); ALBUMIN/GLOBULIN RATIO 0.9 (0.8-2.0); ANION GAP 11.7 mmol/L (8-16); CALCIUM 8.7 mg/dL (8.4-10.2); CREATININE, SERUM 0.74 mg/dL (0.57-1.11); MAGNESIUM 2.2 MG/DL (1.3-2.1); POTASSIUM 3.7 mmol/L (3.5-5.1)
[2023-01-17 08:18] VITALS: BP 135/81
[2023-01-17] MEDS ORDERED: HYDROCODON-ACE1 EA12 PO (08:29)
[2023-01-17] MEDS: DEXAMETHASONE SOD PHOS 10 MG/1 ML VIAL IV SCH (08:43)
[2023-01-17] MEDS: SENNOSIDES 8.6 MG TAB PO SCH (08:44)
[2023-01-17] MEDS ORDERED: Morphine 2mg Syringe 2 MG/ML SYR IV ONE (08:45)
[2023-01-17] MEDS: FAMOTIDINE 20 MG TAB PO SCH (08:45)
[2023-01-17] MEDS: DOCUSATE SODIUM 100 MG CAP PO SCH (08:45)
[2023-01-17] MEDS: DICYCLOMINE HCL 10 MG CAP PO SCH (08:45)
[2023-01-17] MEDS ORDERED: PAXLOVID 300-11 EACH PO (09:20)
[2023-01-17] MEDS ORDERED: REMDESIVIR 100MG 100 MG in SODIUM CHLORIDE 0.9% 100 ML IV SCH (14:00)
== END 2023-01-17 10:00 | disposition home or self-care (01) | DRG 177 ==
LOC: ER 10:08 → ERHOLD 15:46 → IMCU 19:18
PROVIDERS: ADMIT Internal Medicine; ATTEND Internal Medicine
PROC: 8E0ZXY6 Isolation (ICD-10-PCS; principal; 2023-01-15)
PROC: XW043E5 Introduction of Remdesivir Anti-infective into Central Vein, Percutaneous Approach, New Technology Group 5 (ICD-10-PCS; 2023-01-15)
PROC: 02HV33Z Insertion of Infusion Device into Superior Vena Cava, Percutaneous Approach (ICD-10-PCS; 2023-01-15)
DX: U07.1 COVID-19 (principal); J96.01 Acute respiratory failure with hypoxia; R57.1 Hypovolemic shock; K51.90 Ulcerative colitis, unspecified, without complications; N17.9 Acute kidney failure, unspecified; F41.9 Anxiety disorder, unspecified; F32.A Depression, unspecified; M54.9 Dorsalgia, unspecified; G89.29 Other chronic pain; E66.9 Obesity, unspecified; E86.0 Dehydration; F17.210 Nicotine dependence, cigarettes, uncomplicated; K21.9 Gastro-esophageal reflux disease without esophagitis; I95.9 Hypotension, unspecified; E87.6 Hypokalemia; D69.6 Thrombocytopenia, unspecified; W19.XXXA Unspecified fall, initial encounter; Y92.000 Kitchen of unspecified non-institutional (private) residence as the place of occurrence of the external cause; M25.559 Pain in unspecified hip
CPT/HCPCS: 36415; 36569; 70450; 71045; 80053; 80307; 81001; 82533; 82550; 82553; 83605; 83735; 84100; 84436; 84439; 84443; 84479; 84480; 84484; 84702; 85025; 85610; 85730; 87040; 87086; 93005; 94799; 96361; 99285; J0248; J0696; J1100; J1650; J2270; J2405; J2543; J3480; J7030; J7050